=== PATIENT | female | born 1955 | race African-American/Black ===

== ENCOUNTER 2021-02-27 21:19 | Emergency (ER) | payer MEDICARE ==
[~2021-02-27] VITALS: Ht 165.1 cm; Wt 82.0 kg
[2021-02-27] MEDS ORDERED: IV NORMAL SALINE 1000ML BAG 1,000 ML IV ONE (21:45)
--- NOTE | 2021-02-27 22:15 | PHYS DOC ---
Past Medical History Past Surgical History: Other Smoking Status: Never Smoker Alcohol Use: None General Adult EDM: Chief Complaint: SYNCOPE HPI: HPI: 65-year-old female past medical history hypertension diabetes hyperlipidemia breast cancer on chemo presents for evaluation after a near syncopal episode. Patient states she had been at a wedding all day. Wedding was briefly outside but the research group director was inside in the . Just prior to arrival patient was in a family member's car. She suddenly felt lightheaded and nauseous. Patient got out of the car then collapsed to the ground and vomited. Patient went slowly to the ground not falling she did not injure herself. Family did not notice any focal weakness or slurred speech. Patient arrived via EMS. Her vital signs are stable. At the time my examination patient has no complaints. She states her dizziness nausea and lightheadedness had resolved. EKG performed shows heart rate of 79 normal sinus rhythm no ischemic changes. She has no focal weakness. Review of Systems: Review of Systems: Review of systems: Constitutional symptoms- No fever, no chills. Eyes- No Discharge, No Visual Loss Respiratory symptoms- No shortness of breath, No wheezing, No Dyspnea on Exertion Cardiovascular Systems; No chest pain, No Palpitations, No syncope Gastrointestinal symptoms: NO abdominal pain, positive nausea positive vomiting Genitourinary symptoms: No dysuria. Musculoskeletal symptoms: No back pain No extremity pain. NEUROLOGICAL Symptoms: No headache, Positive generalized weakness; No focal Weakness positive lightheaded positive dizziness Skin: No rash. Heart Score: C/O Chest Pain: N/A Risk Factors: Risk Factors: DM, Current or recent (<one month) smoker, HTN, HLP, family history of CAD, obesity. Risk Scores: Score 0 - 3: 2.5% MACE over next 6 weeks - Discharge Home Score 4 - 6: 20.3% MACE over next 6 weeks - Admit for Clinical Observation Score 7 - 10: 72.7% MACE over next 6 weeks - Early Invasive Strategies Current Medications: Current Medications Medications (Trade) Dose Ordered Sig/Rai Start Time Stop Time Status Last Admin Dose Admin Sodium Chloride 1,000 ml @ 1,000 mls/hr 1X ONCE 02/27/21 21:45 02/27/21 22:44 UNV Physical Exam: PE: General: alert, no acute distress. Skin: warm, dry and intact, no erythema, no rash. HENT: bilateral external ears normal, oropharynx moist, nose normal. Head:: Normocephalic, atraumatic. Neck: Trachea midline. Eyes: EOMI, Normal conjunctiva, No drainage CARDIOVASCULAR: Regular rate and rhythm RESPIRATORY: No respiratory distress Back: Full range of motion. MUSCULOSKELETAL: Full range of motion of bilateral upper and lower extremities. GASTROINTESTINAL: Abdomen soft without rebound or guarding. NEUROLOGICAL: Alert and noted to person, place and time. No neurological deficits observed Psychiatric: Cooperative. Normal judgment Current Patient Data: Vital Signs: Vital Signs Date Time Temp Pulse Resp B/P (MAP) Pulse Ox O2 Delivery O2 Flow Rate FiO2 02/27/21 21:27 98.5 88 16 135/65 97 98.5 EKG: EKG: [] Performed at 2227 Rate 79 Normal sinus rhythm No ST elevation No ST depression No acute GA Radiology/Procedures: Radiology/Procedures: [] Course & Med Decision Making: Course & Med Decision Making Pertinent Labs and Imaging studies reviewed. (See chart for details) [] Patient was evaluated for chief complaint. Work-up consisted of laboratory analysis and EKG. Results reviewed and discussed with patient and family. Patient found to have a potassium of 3.1. Patient is on supplemental potassium will treat with a dose of 40 M EQ's. Patient's creatinine noted to be 1.7 no previous for comparison. Patient states last week 1. Patient treated with IV fluids 1 L. Patient has returned back to baseline she has no complaints at this time we will discharge patient home in care of family. Freya Disclaimer: Freya Disclaimer: This electronic medical record was generated, in whole or in part, using a voice recognition dictation system. Departure Departure Impression: Primary Impression: Dehydration Additional Impressions: Renal insufficiency Hypokalemia Disposition: HOME / SELF CARE / HOMELESS Condition: STABLE Patient Instructions: Dehydration, Adult, Hypokalemia CHARLIE ALVES DO Feb 27, 2021 22:15
[2021-02-27 22:16] LABS: BASO % 0 % (0-3); EOS # 0.1 x10^3/uL (0.0-0.7); EOS % 1 % (0-3); HEMATOCRIT 26.2 % (36.0-47.0); HEMOGLOBIN 8.6 g/dL (12.0-15.5); LYMPH # 1.9 x10^3/uL (1.0-4.8); LYMPH % 30 % (24-48); MEAN CORPUSCULAR HEMOGLOBIN 30 pg (25-35); MEAN CORPUSCULAR HGB CONC 33 g/dL (31-37); MEAN CORPUSCULAR VOLUME 91 fL (79-100); MONO # 0.4 x10^3/uL (0.0-1.1); MONO % 6 % (0-9); NEUT % 63 % (31-73); PLATELET COUNT 287 x10^3/uL (140-400); RED BLOOD COUNT 2.88 x10^6/uL (3.50-5.40); RED CELL DISTRIBUTION WIDTH 17.6 % (11.5-14.5); WHITE BLOOD COUNT 6.4 x10^3/uL (4.0-11.0)
--- NOTE | 2021-02-27 22:22 | EKG ---
[facility] [address] [place] [address] Test Date: 2021-02-27 Test Time: 22:02:50 Pat Name: MARY HARRINGTON Department: Room: Gender: F [employer]man: : 1955 Requested By: CHARLIE ALVES Order Number: [id number] Reading MD: Measurements Intervals [place] Rate: 79 P: 56 [place]: 186 QRS: 12 QRSD: 80 T: 16 QT: 380 QTc: 437 Interpretive Statements SINUS RHYTHM NORMAL ECG RI6.01 No previous ECG available for comparison
[2021-02-27 22:28] LABS: CALCIUM 9.7 mg/dL (8.5-10.1); CREATININE 1.7 mg/dL (0.6-1.0); POTASSIUM 3.1 mmol/L (3.5-5.1)
[2021-02-27 22:34] LABS: ALBUMIN 3.5 g/dL (3.4-5.0); TOTAL BILIRUBIN 0.3 mg/dL (0.2-1.0); TOTAL PROTEIN 7.1 g/dL (6.4-8.2)
[2021-02-27] MEDS ORDERED: POTASSIUM CHLORIDE 20 MEQ TABLET.ER. PO ONE (23:45)
[2021-02-28 00:13] VITALS: BP 121/59
== END 2021-02-28 00:34 | disposition home or self-care (01) ==
LOC: ER 21:19
DX: E86.0 Dehydration (principal); N28.9 Disorder of kidney and ureter, unspecified; E87.6 Hypokalemia; E11.9 Type 2 diabetes mellitus without complications; I10 Essential (primary) hypertension
CPT/HCPCS: 36415; 80053; 82550; 84484; 85025; 93005; 96360; 96361; 99285; J7030